=== PATIENT | male | born 1965 | race Caucasian/White ===

== ENCOUNTER → 2016-08-03 | Outpatient (REF) | payer OTHER ==
[2016-08-03 12:30] LABS: MEAN CORPUSCULAR HEMOGLOBIN 29.6 pg (27.0-33.0); MEAN CORPUSCULAR HGB CONC 33.2 g/dl (32.0-36.5); RED CELL DISTRIBUTION WIDTH 13.3 % (11.5-14.5)
[2016-08-03 13:10] LABS: ALBUMIN/GLOBULIN RATIO 1.38 (1.00-1.93); ALKALINE PHOSPHATASE 62 U/L (45-117); ALT/SGPT 33 U/L (12-78); ANION GAP 7 MEQ/L (8-16); AST/SGOT 22 U/L (15-37); BILIRUBIN,TOTAL 0.4 MG/DL (0.2-1.0); BLOOD UREA NITROGEN 17 MG/DL (7-18); CALCIUM LEVEL 8.4 MG/DL (8.5-10.1); CARBON DIOXIDE LEVEL 29 MEQ/L (21-32); CHLORIDE LEVEL 106 MEQ/L (98-107); CHOLESTEROL LEVEL 201 MG/DL (<200); CREATININE FOR GFR 0.97 MG/DL (0.70-1.30); GLOMERULAR FILTRATION RATE > 60.0 (>56); GLUCOSE, FASTING 90 MG/DL (70-105); POTASSIUM SERUM 4.5 MEQ/L (3.5-5.1); SODIUM LEVEL 142 MEQ/L (136-145); TOTAL PROTEIN 6.9 GM/DL (6.4-8.2); TRIGLYCERIDES LEVEL 59 MG/DL (<150)
== END ==
LOC: M SFHCCLAY 09:13
PROVIDERS: ATTEND Nurse Practitioner
DX: I10 Essential (primary) hypertension (principal)

== ENCOUNTER → 2016-09-22 | Outpatient (REF) | payer OTHER | LOC: M SFHCCLAY 15:23 | PROVIDERS: ATTEND Nurse Practitioner | DX: I10 Essential (primary) hypertension (principal) ==

== ENCOUNTER → 2017-07-12 | Outpatient (REF) | payer OTHER ==
[2017-07-13 11:32] LABS: BASO # 0.1 10^3/uL (0.0-0.2); BASO % 0.7 % (0.0-1.0); EOS # 0.1 10^3/uL (0.0-0.50); EOS % 1.9 % (0.0-3.0); HEMATOCRIT 45.8 % (42.0-52.0); HEMOGLOBIN 14.6 g/dl (13.5-17.5); LYMPH # 2.2 10^3/uL (1.5-4.5); LYMPH % 29.9 % (24.0-44.0); MEAN CORPUSCULAR HEMOGLOBIN 27.4 pg (27.0-33.0); MEAN CORPUSCULAR HGB CONC 31.9 g/dl (32.0-36.5); MEAN CORPUSCULAR VOLUME 85.9 fl (80.0-96.0); MONO # 0.6 10^3/uL (0.0-0.8); MONO % 7.9 % (0.0-5.0); NEUTROPHILS # 4.3 10^3/uL (1.8-7.7); NEUTROPHILS % 58.6 % (36.0-66.0); PLATELET COUNT, AUTOMATED 327 10^3/uL (150-450); RED BLOOD COUNT 5.33 10^6/uL (4.30-6.10); WHITE BLOOD COUNT 7.3 10^3/uL (4.0-10.0)
[2017-07-13 11:54] LABS: ALBUMIN 4.1 GM/DL (3.2-5.2); ALBUMIN/GLOBULIN RATIO 1.17 (1.00-1.93); ALKALINE PHOSPHATASE 67 U/L (45-117); ALT/SGPT 24 U/L (12-78); ANION GAP 7 MEQ/L (8-16); AST/SGOT 23 U/L (7-37); BILIRUBIN,TOTAL 0.6 MG/DL (0.2-1.0); BLOOD UREA NITROGEN 15 MG/DL (7-18); CARBON DIOXIDE LEVEL 28 MEQ/L (21-32); CHLORIDE LEVEL 107 MEQ/L (98-107); CHOLESTEROL LEVEL 196 MG/DL (<200); CREATININE FOR GFR 1.05 MG/DL (0.70-1.30); FREE T4 1.04 NG/DL (0.76-1.46); GLOMERULAR FILTRATION RATE > 60.0 (>56); GLUCOSE, FASTING 83 MG/DL (70-100); HDL CHOLESTEROL 49 MG/DL (>40); NON-HDL-C 147 MG/DL; POTASSIUM SERUM 4.2 MEQ/L (3.5-5.1); SODIUM LEVEL 142 MEQ/L (136-145); THYROID STIMULATING HORMONE 0.755 uIU/ML (0.358-3.740); TOTAL PROTEIN 7.6 GM/DL (6.4-8.2); TRIGLYCERIDES LEVEL 110 MG/DL (<150)
== END ==
LOC: M SFHCCLAY 14:13
DX: Z00.00 Encounter for general adult medical examination without abnormal findings (principal); I10 Essential (primary) hypertension
CPT/HCPCS: 84443

== ENCOUNTER 2017-09-27 12:11 | Day surgery (SDC) | payer OTHER ==
[2017-09-27] MEDS: NS 1,000 ML IV (12:39)
== END 2017-09-27 13:45 | disposition home or self-care (01) ==
LOC: M OPP 12:11
DX: Z12.11 Encounter for screening for malignant neoplasm of colon (principal); Z86.010 Personal history of colon polyps; K64.0 First degree hemorrhoids; K57.30 Diverticulosis of large intestine without perforation or abscess without bleeding; I10 Essential (primary) hypertension; Z85.828 Personal history of other malignant neoplasm of skin; F17.220 Nicotine dependence, chewing tobacco, uncomplicated; Z79.899 Other long term (current) drug therapy; Z80.9 Family history of malignant neoplasm, unspecified
CPT/HCPCS: 45378

== ENCOUNTER → 2017-11-18 | Outpatient (REF) | payer OTHER | LOC: M SFHCLERA 10:06 | DX: D23.62 Other benign neoplasm of skin of left upper limb, including shoulder (principal) ==

== ENCOUNTER → 2019-01-03 | Outpatient (REF) | payer OTHER ==
[~2019-01-03] MED LIST: CYCL10TA PO; LISI10TA4 PO; NAPR-885 PO
== END ==
LOC: M SFHCCLAY 15:58
PROVIDERS: ATTEND Nurse Practitioner Family
DX: I10 Essential (primary) hypertension (principal)

== ENCOUNTER → 2019-01-05 | Outpatient (CLI) | payer OTHER ==
[2019-01-05 17:18] LABS: BASO # 0.1 10^3/uL (0.0-0.2); BASO % 0.9 % (0.0-1.0); EOS # 0.3 10^3/uL (0.0-0.5); EOS % 3.8 % (0.0-3.0); HEMATOCRIT 44.9 % (42.0-52.0); HEMOGLOBIN 14.7 g/dl (13.5-17.5); LYMPH # 2.4 10^3/uL (1.5-5.0); LYMPH % 34.8 % (24.0-44.0); MEAN CORPUSCULAR HEMOGLOBIN 28.5 pg (27.0-33.0); MEAN CORPUSCULAR HGB CONC 32.7 g/dl (32.0-36.5); MONO # 0.7 10^3/uL (0.0-0.8); MONO % 9.4 % (0.0-5.0); NEUTROPHILS # 3.5 10^3/uL (1.5-8.5); NEUTROPHILS % 50.7 % (36.0-66.0); PLATELET COUNT, AUTOMATED 286 10^3/uL (150-450); RED BLOOD COUNT 5.16 10^6/uL (4.30-6.10); WHITE BLOOD COUNT 6.9 10^3/uL (4.0-10.0)
[2019-01-05 17:27] LABS: ALBUMIN 4.1 GM/DL (3.2-5.2); ALT/SGPT 31 U/L (12-78); BILIRUBIN,TOTAL 0.8 MG/DL (0.2-1.0); BLOOD UREA NITROGEN 22 MG/DL (7-18); CARBON DIOXIDE LEVEL 32 MEQ/L (21-32); CHLORIDE LEVEL 106 MEQ/L (98-107); CHOLESTEROL LEVEL 212 MG/DL (<200); CHOLESTEROL RISK RATIO 4.711 (<5); CREATININE FOR GFR 1.28 MG/DL (0.70-1.30); FREE T4 0.98 NG/DL (0.76-1.46); GLOMERULAR FILTRATION RATE > 60.0 (>56); GLUCOSE, FASTING 88 MG/DL (70-100); HDL CHOLESTEROL 45 MG/DL (>40); LDL CHOLESTEROL 100 MG/DL (<100); NON-HDL-C 167 MG/DL; POTASSIUM SERUM 4.1 MEQ/L (3.5-5.1); SODIUM LEVEL 142 MEQ/L (136-145); THYROID STIMULATING HORMONE 0.898 uIU/ML (0.358-3.740); TRIGLYCERIDES LEVEL 333 MG/DL (<150)
== END ==
LOC: M WUC 14:49
PROVIDERS: ATTEND Nurse Practitioner Family
DX: I10 Essential (primary) hypertension (principal)

== ENCOUNTER → 2019-02-02 | Outpatient (REF) | payer OTHER ==
[2019-02-06 14:15] LABS: Lyme Disease IgG Ab 18 kDa Ban Present (.); Lyme Disease IgG Ab 23 kDa Ban Absent (.); Lyme Disease IgG Ab 28 kDa Ban Absent (.); Lyme Disease IgG Ab 30 kDa Ban Absent (.); Lyme Disease IgG Ab 39 kDa Ban Present (.); Lyme Disease IgG Ab 41 kDa Ban Present (.); Lyme Disease IgG Ab 45 kDa Ban Absent (.); Lyme Disease IgG Ab 58 kDa Ban Present (.); Lyme Disease IgG Ab 66 kDa Ban Absent (.); Lyme Disease IgG Ab 93 kDa Ban Present (.); Lyme Disease IgG West Blot Int Positive (.); Lyme Disease IgG/IgM Antibodie 2.12 ISR (0.00-0.90); Lyme Disease IgM Ab 23 kDa Ban Present (.); Lyme Disease IgM Ab 39 kDa Ban Absent (.); Lyme Disease IgM Ab 41 kDa Ban Absent (.); Lyme Disease IgM Ab Quantitati <0.80 index (0.00-0.79); Lyme Disease IgM West Blot Int Negative (.)
== END ==
LOC: M SFHCCLAY 13:10
PROVIDERS: ATTEND Nurse Practitioner Family
DX: R25.2 Cramp and spasm (principal); W57.XXXD Bitten or stung by nonvenomous insect and other nonvenomous arthropods, subsequent encounter; Y92.9 Unspecified place or not applicable; Y93.9 Activity, unspecified; Y99.9 Unspecified external cause status

== ENCOUNTER → 2019-02-14 | Outpatient (CLI) | payer OTHER ==
--- NOTE | 2019-02-14 13:22 | REP ---
Urinary tract sonogram: History: Urinary frequency. Comparison: No comparison study. Findings: Scanning at the level of the urinary bladder shows no abnormality. Emptying ureteral jets are confirmed on color Doppler interrogation of the bladder lumen bilaterally. Renal cortical echogenicity pattern is normal bilaterally and contours are smooth. There is no evidence of hydronephrosis, cyst, mass, or calculus in either kidney. Incidental note is made of a 1.6 cm cyst in the right lobe of the liver. The right kidney measures 9.9 x 6.4 x 4.4 cm. Left renal dimensions are 11.6 x 5.7 x 5.5 cm. Impression: 1.6 cm cyst in the liver. Otherwise negative urinary tract sonography. Electronically Signed by Nazario Mendoza MD 02/14/2019 01:13 P
== END ==
LOC: M RAD 12:14
PROVIDERS: ATTEND Nurse Practitioner Family
DX: R35.0 Frequency of micturition (principal)

== ENCOUNTER → 2019-03-06 | Outpatient (CLI) | payer OTHER ==
--- NOTE | 2019-03-06 17:39 | REP ---
LUMBOSACRAL SPINE: Five views of the lumbosacral spine performed. There is no compression fracture. There is relatively normal lumbar lordosis. There is minimal anterolisthesis of L4 on L5 which appears to be due to posterior facet arthropathy with no evidence of spondylolysis. There is mild diffuse spurring. There is mild disc space narrowing at L4-L5 and L5-S1 with sclerosis and spurring at the posterior facet joints of both of these levels. The posterior elements are intact. IMPRESSION: Degenerative changes L4-5 and L5-S1 as discussed above. No fracture or dislocation. Electronically Signed by Jules Mera MD 03/07/2019 09:54 A
== END ==
LOC: M CLY 15:52
PROVIDERS: ATTEND Nurse Practitioner Family
DX: M54.41 Lumbago with sciatica, right side (principal); M51.36 Other intervertebral disc degeneration, lumbar region; M51.37 Other intervertebral disc degeneration, lumbosacral region

== ENCOUNTER → 2019-04-20 | Outpatient (CLI) | payer OTHER ==
--- NOTE | 2019-04-21 08:33 | REP ---
INDICATION: Low back pain PROCEDURE: MRI lumbar spine is routine protocol, and a sagittal T1, T2 and STIR images, axial T1 and T2-weighted images. COMPARISON STUDIES: Plain film study 03/06/2019. FINDINGS: There is zpnj-qq-rxygdzzv multilevel degenerative disc disease loss of disc height and disc desiccation seen diffusely throughout the lumbar spine. Vertebral heights are well preserved. No inna malalignments. Conus ends normally at L1 level. On the sagittal T2-weighted images, the canal narrows at the L3-4 disc level with mild impingement of the nerve roots of the cauda equina On review of axial images, At L1-2 global disc bulge without significant canal or foraminal narrowing. At L2-3 global disc bulge without significant canal or foraminal narrowing. At L3-4 global disc bulge with moderate canal stenosis and ivvl-tp-ijxdnwrx bilateral foraminal narrowing. At L4-5 there is a minimal anterolisthesis of L4 over L5 with global disc bulge with vgtu-px-ofrnzgzu canal narrowing and lbus-hw-wgkomapv bilateral foraminal narrowing appears greater on the left. At L5 S1 loss of disc height, mild canal stenosis, txpb-pf-oxlbehuy right foraminal narrowing and bfrzmcpg-up-qwixns left foraminal narrowing. On the STIR images, no significant STIR signal abnormality to suggest soft tissue or ligamentous injury. IMPRESSION: 1. Asrc-il-trqfdskc multilevel degenerative disc disease. 2. At L3-4 global disc bulge with moderate canal stenosis. 3. L5-S1 loss of disc height with mnzoesjk-co-rfzrtg foraminal narrowing appears greater on the left. Electronically Signed by Joce Santiago MD 04/21/2019 08:25 A
== END ==
LOC: M RAD 16:50
PROVIDERS: ATTEND Physician Assistant
DX: M51.26 Other intervertebral disc displacement, lumbar region (principal); M48.061 Spinal stenosis, lumbar region without neurogenic claudication

== ENCOUNTER → 2019-05-15 | Outpatient (REF) | payer OTHER ==
[2019-05-15 13:30] LABS: INR 1.01; PARTIAL THROMBOPLASTIN TIME 32.2 SECONDS (25.0-38.4)
[2019-05-15 13:45] LABS: PLATELET COUNT, AUTOMATED 265 10^3/uL (150-450)
== END ==
LOC: M LABDRAW1 12:00 → M LABDRAWC 12:00
PROVIDERS: ATTEND Physician Assistant
DX: Z01.812 Encounter for preprocedural laboratory examination (principal); M47.817 Spondylosis without myelopathy or radiculopathy, lumbosacral region

== ENCOUNTER → 2019-05-22 | Outpatient (REF) | payer OTHER | LOC: M LAB REF 09:22 | PROVIDERS: ATTEND Dermatology | DX: D49.2 Neoplasm of unspecified behavior of bone, soft tissue, and skin (principal) ==

== ENCOUNTER 2020-01-15 09:09 | Emergency (ER) | payer OTHER ==
[~2020-01-15] VITALS: Ht 175.3 cm; Wt 93.5 kg
[~2020-01-15 09:09] MED LIST changes: +CYCL-707 PO; -CYCL10TA PO
[2020-01-15] MEDS ORDERED: GABA600T4 (09:18)
[2020-01-15] MEDS ORDERED: DULO1CAP6 (09:18)
[2020-01-15] MEDS ORDERED: MELO15TA28 (09:18)
[2020-01-15] MEDS ORDERED: LOSA25TA14 (09:18)
[2020-01-15 09:57] LABS: BASO % 0.6 % (0.0-1.0); EOS # 0.2 10^3/uL (0.0-0.5); EOS % 3.9 % (0.0-3.0); HEMATOCRIT 41.9 % (42.0-52.0); HEMOGLOBIN 13.2 g/dl (13.5-17.5); LYMPH # 1.7 10^3/uL (1.5-5.0); MEAN CORPUSCULAR HEMOGLOBIN 27.3 pg (27.0-33.0); MEAN CORPUSCULAR HGB CONC 31.5 g/dl (32.0-36.5); MEAN CORPUSCULAR VOLUME 86.6 fl (80.0-96.0); MONO # 0.4 10^3/uL (0.0-0.8); MONO % 8.6 % (0.0-5.0); NEUTROPHILS # 2.5 10^3/uL (1.5-8.5); NEUTROPHILS % 51.7 % (36.0-66.0); PLATELET COUNT, AUTOMATED 233 10^3/uL (150-450); RED BLOOD COUNT 4.84 10^6/uL (4.30-6.10); WHITE BLOOD COUNT 4.9 10^3/uL (4.0-10.0)
--- NOTE | 2020-01-15 10:06 | REPVR ---
PROCEDURE INFORMATION: Exam: XR Chest, 2 Views Exam date and time: 01/15/2020 9:31 AM Age: 54 years old Clinical indication: Shortness of breath; Additional info: HTN TECHNIQUE: Imaging protocol: XR of the chest Views: 2 views. COMPARISON: No relevant prior studies available. FINDINGS: Lungs: Unremarkable. No consolidation. Pleural space: Unremarkable. No pleural effusion. No pneumothorax. Heart/Mediastinum: Unremarkable. No cardiomegaly. Bones/joints: Unremarkable. IMPRESSION: No acute findings. Electronically signed by: Zuly Brady On 01/15/2020 10:06:15 AM
--- NOTE | 2020-01-15 10:06 | REPVR ---
PROCEDURE INFORMATION: Exam: CT Head Without Contrast Exam date and time: 01/15/2020 9:32 AM Age: 54 years old Clinical indication: Pain; Other: High blood pressure; Headache; Additional info: CASSIDY and elev BP TECHNIQUE: Imaging protocol: Computed tomography of the head without contrast. Radiation optimization: All CT scans at this facility use at least one of these dose optimization techniques: automated exposure control; mA and/or kV adjustment per patient size (includes targeted exams where dose is matched to clinical indication); or iterative reconstruction. COMPARISON: No relevant prior studies available. FINDINGS: Brain: Normal. No hemorrhage. Unremarkable white matter. No mass effect. Cerebral ventricles: No ventriculomegaly. Bones/joints: Unremarkable. No acute fracture. Paranasal sinuses: Visualized sinuses are unremarkable. No fluid levels. Mastoid air cells: Visualized mastoid air cells are well aerated. Soft tissues: Unremarkable. IMPRESSION: No acute intracranial abnormality. Electronically signed by: Zuly Brady On 01/15/2020 10:05:55 AM
[2020-01-15 10:33] LABS: ALBUMIN 3.8 GM/DL (3.2-5.2); BILIRUBIN,DIRECT 0.1 MG/DL (0.0-0.2); BILIRUBIN,TOTAL 0.6 MG/DL (0.2-1.0); TOTAL PROTEIN 7.1 GM/DL (6.4-8.2)
[2020-01-15 12:08] LABS: APPEARANCE, URINE CLEAR (CLEAR); BACTERIA, URINE AUTO NEGATIVE (NEGATIVE); BILIRUBIN, URINE AUTO NEGATIVE (NEGATIVE); BLOOD, URINE BLOOD NEGATIVE (NEGATIVE); COLOR, URINE YELLOW (YELLOW); GLUCOSE, URINE (UA) AUTO NEGATIVE (NEGATIVE); KETONE, URINE AUTO NEGATIVE (NEGATIVE); LEUKOCYTE ESTERASE, URINE AUTO NEGATIVE (NEGATIVE); NITRITE, URINE AUTO NEGATIVE (NEGATIVE); PROTEIN, URINE AUTO NEGATIVE (NEGATIVE); RBC, URINE AUTO 1 /HPF (0-3); SPECIFIC GRAVITY URINE AUTO 1.009 (1.002-1.035); SQUAMOUS EPITHELIAL CELL UR AU 0 /HPF (0-6); UROBILINOGEN, URINE AUTO 0.2 mg/dL (0.0-2.0); WBC, URINE AUTO 1 /HPF (0-3)
[2020-01-15 12:45] VITALS: BP 165/99
--- NOTE | 2020-01-15 19:43 | ECGEPIP ---
[facility] - ED Test Date: 2020-01-15 Pat Name: VENKATA ESPINAL Department: Room: - Gender: Male [employer]: susanne : 1965 Requested By: Bryant Mathew Order Number: [id number] Reading MD: Bryant Mathew Measurements Intervals [place] Rate: 69 P: 63 FL: 168 QRS: 9 QRSD: 100 T: 32 QT: 370 QTc: 397 Interpretive Statements SINUS RHYTHM NONSPECIFIC ST T WAVE CHANGES NO PRIOR ECG FOR COMPARISON Electronically Signed on 01-15-2020 19:43:05 EDT by Bryant Mathew
--- NOTE | 2020-01-15 19:46 | ECGEPIP ---
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 Order Number: [id number] Reading MD: Bryant Mathew Measurements Intervals [place] Rate: 55 P: 40 SC: 151 QRS: 15 QRSD: 102 T: 36 QT: 399 QTc: 382 Interpretive Statements SINUS BRADYCARDIA NONSPECIFIC ST T WAVE CHANGES CW 01/15/[address] T WAVE CHANGES Electronically Signed on 01-15-2020 19:46:28 EDT by Bryant Mathew
== END 2020-01-15 13:10 | disposition home or self-care (01) ==
LOC: M ED 09:09
DX: I10 Essential (primary) hypertension (principal); M62.81 Muscle weakness (generalized); R00.1 Bradycardia, unspecified; M54.9 Dorsalgia, unspecified; Z87.891 Personal history of nicotine dependence; Z79.899 Other long term (current) drug therapy

== ENCOUNTER → 2020-01-18 | Outpatient (REF) | payer OTHER ==
[~2020-01-18] MED LIST changes: +DULO1CAP6; +GABA600T4; +LOSA25TA14; +MELO15TA28
[2020-01-18 16:44] LABS: ALBUMIN 3.8 GM/DL (3.2-5.2); ALT/SGPT 25 U/L (12-78); BILIRUBIN,TOTAL 0.9 MG/DL (0.2-1.0); BLOOD UREA NITROGEN 21 MG/DL (7-18); CALCIUM LEVEL 9.1 MG/DL (8.5-10.1); CARBON DIOXIDE LEVEL 29 MEQ/L (21-32); CHLORIDE LEVEL 107 MEQ/L (98-107); CHOLESTEROL LEVEL 211 MG/DL (<200); CHOLESTEROL RISK RATIO 4.306 (<5); CREATININE FOR GFR 1.06 MG/DL (0.70-1.30); FREE T4 0.87 NG/DL (0.76-1.46); GLOMERULAR FILTRATION RATE > 60.0 (>56); GLUCOSE, FASTING 116 MG/DL (70-100); HDL CHOLESTEROL 49 MG/DL (>40); LDL CHOLESTEROL 136 MG/DL (<100); NON-HDL-C 162 MG/DL; POTASSIUM SERUM 4.2 MEQ/L (3.5-5.1); SODIUM LEVEL 140 MEQ/L (136-145); THYROID STIMULATING HORMONE 0.634 uIU/ML (0.358-3.740); TOTAL PROTEIN 7.1 GM/DL (6.4-8.2); TRIGLYCERIDES LEVEL 129 MG/DL (<150)
== END ==
LOC: M SFHCCLAY 10:43
PROVIDERS: ATTEND Nurse Practitioner Family
DX: I10 Essential (primary) hypertension (principal)

== ENCOUNTER → 2020-02-26 | Outpatient (CLI) | payer OTHER ==
[2020-02-26 20:41] LABS: PLATELET COUNT, AUTOMATED 293 10^3/uL (150-450)
[2020-02-26 20:52] LABS: INR 0.95; PROTHROMBIN TIME 12.9 SECONDS (12.5-14.3)
[2020-02-26 20:53] LABS: PARTIAL THROMBOPLASTIN TIME 32.1 SECONDS (24.2-38.5)
== END ==
LOC: M WUC 16:51
PROVIDERS: ATTEND Physician Assistant
DX: M47.817 Spondylosis without myelopathy or radiculopathy, lumbosacral region (principal)

== ENCOUNTER → 2020-04-03 | Outpatient (CLI) | payer OTHER | LOC: M LABSMTC 12:17 | PROVIDERS: ATTEND Physical Medicine & Rehabilitation | DX: Z01.812 Encounter for preprocedural laboratory examination (principal); Z20.828 Contact with and (suspected) exposure to other viral communicable diseases ==

== ENCOUNTER → 2020-06-12 | Outpatient (REF) | payer OTHER ==
[~2020-06-12] MED LIST changes: +LISI10TA22 PO; -LISI10TA4 PO
[2020-06-13 11:51] LABS: BASO % 0.7 % (0.0-1.0); EOS # 0.2 10^3/uL (0.0-0.5); EOS % 3.5 % (0.0-3.0); HEMATOCRIT 45.6 % (42.0-52.0); HEMOGLOBIN 14.3 g/dl (13.5-17.5); LYMPH # 1.6 10^3/uL (1.5-5.0); LYMPH % 28.9 % (24.0-44.0); MEAN CORPUSCULAR HEMOGLOBIN 27.3 pg (27.0-33.0); MEAN CORPUSCULAR HGB CONC 31.4 g/dl (32.0-36.5); MEAN CORPUSCULAR VOLUME 87.2 fl (80.0-96.0); MONO # 0.5 10^3/uL (0.0-0.8); MONO % 9.1 % (2.0-8.0); NEUTROPHILS # 3.1 10^3/uL (1.5-8.5); NEUTROPHILS % 57.2 % (36.0-66.0); PLATELET COUNT, AUTOMATED 308 10^3/uL (150-450); RED BLOOD COUNT 5.23 10^6/uL (4.30-6.10); WHITE BLOOD COUNT 5.4 10^3/uL (4.0-10.0)
[2020-06-13 13:43] LABS: ALBUMIN 4.1 GM/DL (3.2-5.2); ALT/SGPT 34 U/L (12-78); BILIRUBIN,TOTAL 0.6 MG/DL (0.2-1.0); BLOOD UREA NITROGEN 19 MG/DL (7-18); CALCIUM LEVEL 8.7 MG/DL (8.5-10.1); CARBON DIOXIDE LEVEL 29 MEQ/L (21-32); CHLORIDE LEVEL 108 MEQ/L (98-107); CREATININE FOR GFR 1.13 MG/DL (0.70-1.30); FREE T4 0.83 NG/DL (0.76-1.46); GLOMERULAR FILTRATION RATE > 60.0 (>56); GLUCOSE, FASTING 101 MG/DL (70-100); POTASSIUM SERUM 5.6 MEQ/L (3.5-5.1); SODIUM LEVEL 140 MEQ/L (136-145); THYROID STIMULATING HORMONE 0.955 uIU/ML (0.358-3.740); TOTAL PROTEIN 7.4 GM/DL (6.4-8.2)
== END ==
LOC: M SFHCCLAY 13:45
PROVIDERS: ATTEND Nurse Practitioner Family
DX: I10 Essential (primary) hypertension (principal); R42 Dizziness and giddiness

== ENCOUNTER → 2020-06-19 | Outpatient (CLI) | payer OTHER ==
--- NOTE | 2020-06-19 10:26 | REP ---
INDICATION: DIZZINESS COMPARISON: None. TECHNIQUE: Real-time ultrasound evaluation and duplex Doppler interrogation of the extracranial carotid vasculature is performed. FINDINGS: There is minimal plaquing and narrowing in both carotid bulbs, internal and external carotid arteries. Luminal narrowing is less than 50%. There is no evidence of hemodynamically significant stenosis of either internal carotid artery. Normal flow velocities are seen. The vertebral arteries demonstrate normal direction of flow. RIGHT LEFT Peak systolic velocity ICA 54.5 cm/s 59.5 cm/s End diastolic velocity ICA 19.1 cm/s 29.5 cm/s Peak systolic velocity CCA 67.0 cm/s 81.9cm/s Peak systolic velocity ECA 107.4 cm/s 101.2 cm/s ICA/CCA ratio 0.8 0.7 IMPRESSION: Bilateral luminal narrowing of the internal carotid arteries less than 50%. No evidence of hemodynamically significant stenosis. <Electronically signed by Jules Mera > 06/19/20 [id number]
== END ==
LOC: M RAD 09:53
PROVIDERS: ATTEND Nurse Practitioner Family
DX: I65.29 Occlusion and stenosis of unspecified carotid artery (principal); R42 Dizziness and giddiness

== ENCOUNTER → 2020-06-20 | Outpatient (CLI) | payer OTHER ==
--- NOTE | 2020-06-21 12:41 | ECHO ---
DATE OF PROCEDURE: 06/20/2020 Age: 55 Gender: Male Height: 69 inches Weight: 209 pounds Body surface area: 2.1 m2 PATIENT LOCATION: Outpatient. REFERRING PHYSICIAN: NOEMI Hilliard. INDICATION: Hypertension. MEASUREMENTS: 2D Measurements: RV 4.0 cm LV 4.6 cm Septum 1.2 cm Posterior wall 1.2 cm Aortic Root 3.6 cm LA 4.3 cm LVEF 75% Doppler Measurements: AV 1.64 m/s LVOT 1.19 m/s MV-E 65, A 47, E/A ratio 1.4 Early mitral deceleration time 166 msec E prime medial 10, A prime medial 9.7, E prime lateral 9.7 PV 1.0 m/s Pulmonary artery acceleration time 116 msec RVSP 30 mmHg IVC 1.3 cm COMMENTS: Normal sinus rhythm without intraventricular conduction disturbance. Technically challenging study in light of the patients body habitus, but diagnostically useful information was still obtained. M-mode and two-dimensional echocardiography was performed with pulse, continuous wave, color flow, and tissue Doppler studies. Borderline concentric left ventricular hypertrophy with hyperkinetic wall motion. Mildly dilated left atrium, but currently normal Doppler assessment of LV diastolic function and estimated mean left atrial pressure. Normal right heart chamber sizes and motion with Doppler evidence of pulmonary arterial pressure upper limits of normal to borderline increased. Normal IVC size and collapse against an elevated central venous pressure. Normal aortic dimensions. Somewhat challenging, but aortic valve appearance suspect for bicuspid structure without current aortic stenosis or insufficiency. Normal appearing mitral valve apparatus and leaflet excursion with no posterior systolic buckling. Trace insufficiency (physiologic). Normal appearing tricuspid valve with very mild insufficiency. No apparent intracardiac mass or pericardial effusion. In light of the aortic valve findings, a follow-up study would be suggested in two to three years time. BREONNA
== END ==
LOC: M CARPUL 09:14
PROVIDERS: ATTEND Nurse Practitioner Family
DX: I10 Essential (primary) hypertension (principal)

== ENCOUNTER → 2020-07-04 | Outpatient (CLI) | payer OTHER ==
--- NOTE | 2020-07-04 18:34 | REPVR ---
PROCEDURE INFORMATION: Exam: MR Cervical Spine Without Contrast Exam date and time: 07/04/2020 5:27 PM Age: 55 years old Clinical indication: Pain; Cervicalgia; Additional info: Cervacalgia TECHNIQUE: Imaging protocol: Multiplanar magnetic resonance images of the cervical spine without contrast. COMPARISON: CR SPINE LS COMPLETE 03/06/2019 4:01 PM FINDINGS: Nonspecific straightening. Vertebral body height and AP alignment is preserved. Multilevel disc desiccation. No evidence of discitis/osteomyelitis. No abnormal cord signal or cord expansion. No epidural fluid collection. 2.2 cm right thyroid nodule 1.5 cm left thyroid nodule. C2-C3: No significant central or foraminal stenosis. C3-C4: No significant central canal stenosis. Bilateral uncinate spurring contributes to severe right and moderate to severe left foraminal stenosis. C4-C5: Uncinate spurring contributes to jjzt-lv-yeecndjd right and mild left foraminal stenosis. No significant central canal stenosis. C5-C6: Uncinate spurring contributes to mild right and ruyi-uc-hmcwndxs left foraminal stenosis. No significant central canal stenosis. C6-C7: Minimal disc osteophyte complex with bilateral uncinate spurring. No significant central canal stenosis. There is mild right and tyoo-qd-vejwaosg left foraminal stenosis. C7-T1: No significant central or foraminal stenosis. IMPRESSION: 1. No acute abnormality. 2. Degenerative findings as above without significant central canal compromise. 3. 2.2 cm right thyroid nodule and 1.5 cm left thyroid nodule. Ultrasound may be considered. Electronically signed by: Benjamin Molina On 07/04/2020 18:33:58 PM
--- NOTE | 2020-07-04 18:36 | REPVR ---
PROCEDURE INFORMATION: Exam: MR Thoracic Spine Without Contrast Exam date and time: 07/04/2020 5:27 PM Age: 55 years old Clinical indication: Pain in thoracic spine; Without myelpathy or radiculopathy; Additional info: Cervacalgia TECHNIQUE: Imaging protocol: Multiplanar magnetic resonance images of the thoracic spine without contrast. COMPARISON: CR SPINE LS COMPLETE 03/06/2019 4:01 PM FINDINGS: Vertebral body height and AP alignment is preserved. Multilevel disc desiccation. No evidence of discitis/osteomyelitis. There is multilevel Schmorl's node formation. There is increased cord signal and cord thinning at T3-T4. No expansile cord lesion. No epidural fluid collection. There are a few tiny thoracic protrusions without significant central canal stenosis throughout. IMPRESSION: 1. 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 2. Thoracic spine degenerative disc disease without significant central canal compromise throughout. Electronically signed by: Benjamin Molina On 07/04/2020 18:36:39 PM
== END ==
LOC: M RAD 15:50
PROVIDERS: ATTEND Physician Assistant
DX: M54.2 Cervicalgia (principal)

== ENCOUNTER → 2020-07-18 | Outpatient (CLI) | payer OTHER ==
--- NOTE | 2020-07-18 15:20 | REP ---
INDICATION: SPONDYLOSIS W/O MYELOPATHY. COMPARISON: MR lumbar spine 04/20/2019 TECHNIQUE: Sagittal T1, T2, stir images obtained. Axial T2-1 and T2 weighted images obtained. FINDINGS: There is fasr-lr-mfaedctg multilevel degenerative disc disease with loss of disc height and disc desiccation seen diffusely throughout the lumbar spine. Vertebral heights are overall preserved. No malalignments. On the sagittal T2 weighted images, the spinal canal appears congenitally narrow however no evidence of further canal compromise. No evidence of cord impingement or cord compression. The narrowest level appears to be at L3-4. On the STIR images, no significant stir signal abnormality to suggest soft tissue or ligamentous injury. There appears to be transitional anatomy with a complete vertebrae at S1. Comparison plain film studies recommended prior to any interventions. On the review of axial images, At L1-2 disc bulge without significant canal or foraminal narrowing. At L2-3 disc bulge without significant canal or foraminal narrowing. At L3-4 global disc bulge with ligamentum flavum infolding and facet hypertrophy with a moderate canal stenosis and moderate bilateral foraminal narrowing. At L4-5 disc bulge with telj-zr-glbfnabh canal narrowing and ipve-ql-csuukrgs bilateral foraminal narrowing. At L5-S1 slight listhesis with at least moderate left foraminal narrowing jbul-bq-typgtyfr right foraminal narrowing and mild canal stenosis. IMPRESSION: 1. Wohq-qs-gdccycxj multilevel degenerative disc disease with congenital spinal canal narrowing. 2. At L3-4 global disc bulge with moderate canal stenosis. 3. At L5-S1 zfghptrs-pu-cmtbla foraminal narrowing appears greater on the left. 4. When compared to the prior study of 04/20/2019, no significant changes. <Electronically signed by Joce Santiago > 07/18/20 [id number]
== END ==
LOC: M PLARAD 13:26
PROVIDERS: ATTEND Physician Assistant
DX: M47.817 Spondylosis without myelopathy or radiculopathy, lumbosacral region (principal); M51.26 Other intervertebral disc displacement, lumbar region

== ENCOUNTER → 2020-08-12 | Outpatient (REF) | payer OTHER ==
[2020-08-12 14:49] LABS: ALBUMIN 4.1 GM/DL (3.2-5.2); ALT/SGPT 35 U/L (12-78); BILIRUBIN,TOTAL 0.8 MG/DL (0.2-1.0); BLOOD UREA NITROGEN 17 MG/DL (7-18); CALCIUM LEVEL 8.9 MG/DL (8.5-10.1); CARBON DIOXIDE LEVEL 30 MEQ/L (21-32); CHLORIDE LEVEL 108 MEQ/L (98-107); CHOLESTEROL LEVEL 123 MG/DL (<200); CHOLESTEROL RISK RATIO 2.617 (<5); CREATININE FOR GFR 1.03 MG/DL (0.70-1.30); GLOMERULAR FILTRATION RATE > 60.0 (>56); GLUCOSE, FASTING 92 MG/DL (70-100); HDL CHOLESTEROL 47 MG/DL (>40); LDL CHOLESTEROL 63 MG/DL (<100); NON-HDL-C 76 MG/DL; POTASSIUM SERUM 4.8 MEQ/L (3.5-5.1); SODIUM LEVEL 141 MEQ/L (136-145); TOTAL PROTEIN 7.3 GM/DL (6.4-8.2); TRIGLYCERIDES LEVEL 66 MG/DL (<150)
== END ==
LOC: M SFHCCLAY 08:02
PROVIDERS: ATTEND Nurse Practitioner Family
DX: I10 Essential (primary) hypertension (principal); E78.5 Hyperlipidemia, unspecified

== ENCOUNTER → 2021-07-16 | Outpatient (REF) ==
[~2021-07-16] MED LIST changes: +LOSA25TA13; -LOSA25TA14
== END ==
LOC: M PLAIMG 15:34
PROVIDERS: ATTEND Internal Medicine
DX: M54.9 Dorsalgia, unspecified (principal)

== ENCOUNTER → 2021-08-19 | Outpatient (REF) | payer OTHER ==
[2021-08-19 11:36] LABS: HEMATOCRIT 44.8 % (42.0-52.0); MEAN CORPUSCULAR HEMOGLOBIN 27.3 pg (27.0-33.0); MEAN CORPUSCULAR HGB CONC 31.3 g/dl (32.0-36.5); MEAN CORPUSCULAR VOLUME 87.5 fl (80.0-96.0); PLATELET COUNT, AUTOMATED 259 10^3/uL (150-450); RED BLOOD COUNT 5.12 10^6/uL (4.30-6.10); WHITE BLOOD COUNT 4.7 10^3/uL (4.0-10.0)
[2021-08-19 12:20] LABS: ALBUMIN 3.9 GM/DL (3.2-5.2); ALT/SGPT 39 U/L (12-78); BILIRUBIN,TOTAL 0.6 MG/DL (0.2-1.0); BLOOD UREA NITROGEN 17 MG/DL (7-18); CALCIUM LEVEL 8.9 MG/DL (8.5-10.1); CARBON DIOXIDE LEVEL 28 MEQ/L (21-32); CHLORIDE LEVEL 110 MEQ/L (98-107); CHOLESTEROL LEVEL 100 MG/DL (<200); CHOLESTEROL RISK RATIO 2.702 (<5); CREATININE FOR GFR 1.13 MG/DL (0.70-1.30); FREE T4 0.91 NG/DL (0.76-1.46); GLOMERULAR FILTRATION RATE > 60.0 (>56); GLUCOSE, FASTING 95 MG/DL (70-100); HDL CHOLESTEROL 37 MG/DL (>40); LDL CHOLESTEROL 50 MG/DL (<100); MAGNESIUM LEVEL 2.3 MG/DL (1.8-2.4); NON-HDL-C 63 MG/DL; POTASSIUM SERUM 4.6 MEQ/L (3.5-5.1); SODIUM LEVEL 141 MEQ/L (136-145); TOTAL PROTEIN 7.1 GM/DL (6.4-8.2); TRIGLYCERIDES LEVEL 66 MG/DL (<150); VITAMIN B12 LEVEL 345 PG/ML (247-911)
== END ==
LOC: M SFHCCLAY 08:15
PROVIDERS: ATTEND Nurse Practitioner Family
DX: I10 Essential (primary) hypertension (principal); R42 Dizziness and giddiness; E78.5 Hyperlipidemia, unspecified; R25.2 Cramp and spasm

== ENCOUNTER → 2021-09-04 | Outpatient (CLI) | payer OTHER | LOC: M PLAIMG 08:08 | PROVIDERS: ATTEND Psychiatry & Neurology Neurology | DX: R42 Dizziness and giddiness (principal) ==

== ENCOUNTER → 2021-10-22 | Outpatient (CLI) | payer OTHER ==
[2021-10-22 10:22] LABS: PLATELET COUNT, AUTOMATED 261 10^3/uL (150-450)
[2021-10-22 10:30] LABS: INR 0.95; PROTHROMBIN TIME 13.1 SECONDS (12.7-14.5)
[2021-10-22 10:31] LABS: PARTIAL THROMBOPLASTIN TIME 30.9 SECONDS (25.9-37.0)
== END ==
LOC: M LAB 08:44
PROVIDERS: ATTEND Physician Assistant
DX: M51.36 Other intervertebral disc degeneration, lumbar region (principal)

== ENCOUNTER → 2021-12-12 | Outpatient (REF) | payer OTHER | LOC: M LABDRAWC 11:42 | PROVIDERS: ATTEND Psychiatry & Neurology Neurology | DX: E53.8 Deficiency of other specified B group vitamins (principal) ==

== ENCOUNTER → 2021-12-16 | Outpatient (REF) | payer OTHER | LOC: M LAB REF 15:12 | PROVIDERS: ATTEND Physician Assistant | DX: M48.062 Spinal stenosis, lumbar region with neurogenic claudication (principal) ==

== ENCOUNTER → 2021-12-25 | Outpatient (REF) | payer OTHER | LOC: M SFHCCLAY 15:11 | PROVIDERS: ATTEND Family Medicine | DX: H66.91 Otitis media, unspecified, right ear (principal) ==

== ENCOUNTER → 2022-04-29 | Outpatient (REF) | payer OTHER | LOC: M LABDRAWC 17:08 | PROVIDERS: ATTEND Psychiatry & Neurology Neurology | DX: E53.8 Deficiency of other specified B group vitamins (principal) ==

== ENCOUNTER → 2022-07-03 | Outpatient (CLI) | payer OTHER ==
[~2022-07-03] MED LIST changes: +PROHANCE 279.3MG/ML 15ML VIAL As Ordered ONE; +PROHANCE 279.3MG/ML 5ML VIAL As Ordered ONE
== END ==
LOC: M RAD 08:53
PROVIDERS: ATTEND Psychiatry & Neurology Neurology
DX: M47.14 Other spondylosis with myelopathy, thoracic region (principal); E04.1 Nontoxic single thyroid nodule; G95.89 Other specified diseases of spinal cord
CPT/HCPCS: 72157; A9576

== ENCOUNTER → 2022-08-25 | Outpatient (REF) | payer OTHER ==
[~2022-08-25] MED LIST changes: -PROHANCE 279.3MG/ML 15ML VIAL As Ordered ONE; -PROHANCE 279.3MG/ML 5ML VIAL As Ordered ONE
[2022-08-25 12:11] LABS: BASO # 0.1 10^3/uL (0.0-0.2); BASO % 1.1 % (0.0-1.0); EOS # 0.2 10^3/uL (0.0-0.5); EOS % 4.7 % (0.0-3.0); HEMATOCRIT 44.1 % (42.0-52.0); HEMOGLOBIN 14.2 g/dl (13.5-17.5); LYMPH # 1.6 10^3/uL (1.5-5.0); LYMPH % 34.8 % (24.0-44.0); MEAN CORPUSCULAR HEMOGLOBIN 27.9 pg (27.0-33.0); MEAN CORPUSCULAR HGB CONC 32.2 g/dl (32.0-36.5); MEAN CORPUSCULAR VOLUME 86.6 fl (80.0-96.0); MONO # 0.4 10^3/uL (0.0-0.8); MONO % 8.5 % (2.0-8.0); NEUTROPHILS # 2.4 10^3/uL (1.5-8.5); NEUTROPHILS % 50.5 % (36.0-66.0); PLATELET COUNT, AUTOMATED 284 10^3/uL (150-450); RED BLOOD COUNT 5.09 10^6/uL (4.30-6.10); WHITE BLOOD COUNT 4.7 10^3/uL (4.0-10.0)
[2022-08-25 12:33] LABS: ALBUMIN 3.7 G/DL (3.2-5.2); ALKALINE PHOSPHATASE 69 U/L (46-116); ALT/SGPT 27 U/L (7.0-40); AST/SGOT 29 U/L (<34); BILIRUBIN,TOTAL 0.9 MG/DL (0.3-1.2); BLOOD UREA NITROGEN 12 MG/DL (9-23); CALCIUM LEVEL 8.5 MG/DL (8.5-10.1); CARBON DIOXIDE LEVEL 29 MMOL/L (20-31); CHLORIDE LEVEL 107 MMOL/L (98-107); CHOLESTEROL LEVEL 99 MG/DL (<200); CHOLESTEROL RISK RATIO 2.77 (<5); CREATININE FOR GFR 0.98 MG/DL (0.70-1.30); FREE T4 0.89 NG/DL (0.89-1.76); GLOMERULAR FILTRATION RATE > 60.0 (>56); GLUCOSE, FASTING 89 MG/DL (60-100); HDL CHOLESTEROL 35.7 MG/DL (>40); LDL CHOLESTEROL 49.3 MG/DL (<100); MAGNESIUM LEVEL 2.1 MG/DL (1.8-2.4); NON-HDL-C 63.3 MG/DL; POTASSIUM SERUM 4.4 MMOL/L (3.5-5.1); SODIUM LEVEL 142 MMOL/L (136-145); TOTAL PROTEIN 6.4 G/DL (5.7-8.2); TRIGLYCERIDES LEVEL 70 MG/DL (<150)
[2022-08-25 12:34] LABS: THYROID STIMULATING HORMONE 1.336 uIU/ML (0.55-4.78)
== END ==
LOC: M SFHCCLAY 09:11
PROVIDERS: ATTEND Nurse Practitioner Family
DX: I10 Essential (primary) hypertension (principal); R42 Dizziness and giddiness; E78.5 Hyperlipidemia, unspecified; R25.2 Cramp and spasm; W57.XXXD Bitten or stung by nonvenomous insect and other nonvenomous arthropods, subsequent encounter

== ENCOUNTER → 2022-09-25 | Outpatient (CLI) | payer OTHER | LOC: M CARPUL 08:35 | PROVIDERS: ATTEND Nurse Practitioner Family | DX: I10 Essential (primary) hypertension (principal); I08.3 Combined rheumatic disorders of mitral, aortic and tricuspid valves; R55 Syncope and collapse ==

== ENCOUNTER → 2022-10-26 | Outpatient (CLI) | payer OTHER | LOC: M RAD 10:18 | PROVIDERS: ATTEND Nurse Practitioner Family | DX: E04.2 Nontoxic multinodular goiter (principal) ==

== ENCOUNTER 2023-01-25 09:19 | Emergency (ER) | payer MEDICARE, OTHER ==
[~2023-01-25] VITALS: Ht 177.8 cm; Wt 81.8 kg
[2023-01-25] MEDS ORDERED: LOSA100T46 (09:36)
[2023-01-25] MEDS ORDERED: TIZA10TA (09:36)
[2023-01-25] MEDS ORDERED: ATOR40TA75 (09:36)
[2023-01-25] MEDS ORDERED: MORPHINE 4 MG/ML 1ML VIAL IV ONE (11:25)
[2023-01-25 12:02] LABS: BASO # 0.1 10^3/uL (0.0-0.2); BASO % 0.6 % (0.0-1.0); EOS # 0.1 10^3/uL (0.0-0.5); EOS % 0.7 % (0.0-3.0); HEMATOCRIT 46.3 % (42.0-52.0); LYMPH # 2.1 10^3/uL (1.5-5.0); LYMPH % 24.3 % (24.0-44.0); MEAN CORPUSCULAR HEMOGLOBIN 28.4 pg (27.0-33.0); MEAN CORPUSCULAR HGB CONC 32.4 g/dl (32.0-36.5); MEAN CORPUSCULAR VOLUME 87.7 fl (80.0-96.0); MONO # 0.7 10^3/uL (0.0-0.8); MONO % 8.4 % (2.0-8.0); NEUTROPHILS # 5.6 10^3/uL (1.5-8.5); NEUTROPHILS % 65.9 % (36.0-66.0); PLATELET COUNT, AUTOMATED 288 10^3/uL (150-450); RED BLOOD COUNT 5.28 10^6/uL (4.30-6.10); WHITE BLOOD COUNT 8.5 10^3/uL (4.0-10.0)
[2023-01-25 12:14] LABS: LIPASE 60 U/L (12-53)
[2023-01-25 12:15] LABS: INR 1.02; PROTHROMBIN TIME 13.1 SECONDS (12.5-14.5)
[2023-01-25 12:17] LABS: ALBUMIN 4.5 G/DL (3.2-5.2); ALKALINE PHOSPHATASE 70 U/L (46-116); ALT/SGPT 18 U/L (7.0-40); AST/SGOT 31 U/L (<34); BILIRUBIN,DIRECT 0.5 MG/DL (<0.4); BILIRUBIN,TOTAL 1.4 MG/DL (0.3-1.2); BLOOD UREA NITROGEN 15 MG/DL (9-23); CALCIUM LEVEL 9.4 MG/DL (8.5-10.1); CARBON DIOXIDE LEVEL 29 MMOL/L (20-31); CHLORIDE LEVEL 102 MMOL/L (98-107); CK-MB VALUE MASS 4.2 NG/ML (<3.6); CREATININE FOR GFR 0.94 MG/DL (0.70-1.30); GLOMERULAR FILTRATION RATE > 60.0 (>56); GLUCOSE, FASTING 111 MG/DL (60-100); POTASSIUM SERUM 4.3 MMOL/L (3.5-5.1); SODIUM LEVEL 139 MMOL/L (136-145); TOTAL PROTEIN 7.6 G/DL (5.7-8.2)
[2023-01-25 12:20] LABS: CPK CREATINE PHOSPHOKINASE 582 U/L (46-171); MB/CK RELATIVE INDEX 0.72 (< OR =4)
[2023-01-25] MEDS ORDERED: KETOROLAC 30 MG/ML 1ML VIAL IV ONE (13:05)
[2023-01-25 13:44] LABS: MB/CK RELATIVE INDEX 0.77 (< OR =4)
[2023-01-25] MEDS ORDERED: CHLORTHALIDONE 12.5MG PER 1/2 TABLET PO ONE (14:20)
[2023-01-25] MEDS ORDERED: CHLO125TA PO (14:26)
[2023-01-25] MEDS ORDERED: FLOM0.4C39 PO (14:26)
[2023-01-25] MEDS ORDERED: NAPR-837 PO (14:26)
[2023-01-25 14:50] VITALS: BP 172/94; TEMP 98.4; O2SAT 98
== END 2023-01-25 15:06 | disposition home or self-care (01) ==
LOC: M ED 09:19
DX: R07.9 Chest pain, unspecified (principal); M62.830 Muscle spasm of back; R31.9 Hematuria, unspecified; N40.0 Benign prostatic hyperplasia without lower urinary tract symptoms; I10 Essential (primary) hypertension; E27.9 Disorder of adrenal gland, unspecified; N32.89 Other specified disorders of bladder; M54.50 Low back pain, unspecified; Z79.02 Long term (current) use of antithrombotics/antiplatelets; Z79.811 Long term (current) use of aromatase inhibitors; Z79.899 Other long term (current) drug therapy; Z87.891 Personal history of nicotine dependence
CPT/HCPCS: 71045; 74176; 80048; 80076; 81001; 82550; 82553; 83690; 84484; 85025; 85610; 93005; 93041; 94760; 96374; 96375; 99285; J1885

== ENCOUNTER 2023-01-31 08:34 | Emergency (ER) | payer MEDICARE ==
[~2023-01-31] VITALS: Ht 177.8 cm; Wt 81.8 kg
[~2023-01-31 08:34] MED LIST changes: +ATOR40TA75; +CHLO125TA PO; +FLOM0.4C39 PO; +LOSA100T46; +NAPR-837 PO; +TIZA10TA
[2023-01-31] MEDS ORDERED: CYAN-1 (08:49)
[2023-01-31] MEDS ORDERED: GABA800T4 (08:49)
[2023-01-31] MEDS ORDERED: ONDANSETRON 4MG 2ML VIAL IV ONE (09:20)
[2023-01-31] MEDS ORDERED: MORPHINE 4 MG/ML 1ML VIAL IV ONE ×3 (09:20→20:30)
[2023-01-31 09:33] LABS: BASO # 0.1 10^3/uL (0.0-0.2); BASO % 0.6 % (0.0-1.0); EOS # 0.2 10^3/uL (0.0-0.5); EOS % 1.8 % (0.0-3.0); HEMOGLOBIN 13.6 g/dl (13.5-17.5); LYMPH # 1.6 10^3/uL (1.5-5.0); LYMPH % 18.5 % (24.0-44.0); MEAN CORPUSCULAR HEMOGLOBIN 28.5 pg (27.0-33.0); MEAN CORPUSCULAR VOLUME 83.9 fl (80.0-96.0); MONO # 0.9 10^3/uL (0.0-0.8); MONO % 10.3 % (2.0-8.0); NEUTROPHILS % 68.3 % (36.0-66.0); PLATELET COUNT, AUTOMATED 341 10^3/uL (150-450); RED BLOOD COUNT 4.77 10^6/uL (4.30-6.10); WHITE BLOOD COUNT 8.7 10^3/uL (4.0-10.0)
[2023-01-31 09:38] LABS: ERYTHROCYTE SEDIMENTATION RATE 38 mm/hr (0-20)
[2023-01-31] MEDS ORDERED: MORPHINE 2 MG/ML 1ML VIAL IV ONE ×2 (11:00→14:20)
[2023-01-31] MEDS ORDERED: PROHANCE 279.3MG/ML 15ML VIAL As Ordered ONE (12:34)
[2023-01-31] MEDS ORDERED: PROHANCE 279.3MG/ML 5ML VIAL As Ordered ONE (12:34)
[2023-01-31] MEDS ORDERED: NS 1,000 ML IV ONE (15:00)
[2023-01-31] MEDS ORDERED: VANCOMYCIN HCL 1,750 MG in NS 250 ML IV ONE (15:30)
[2023-01-31] MEDS ORDERED: cefTRIAXone SOD 2 GM in D5W MINI-BAG PLUS 50 ML IV ONE (15:30)
[2023-01-31] MEDS ORDERED: VANCOMYCIN HCL 750 MG, VIAL MATE ADAPTER 1 EACH in D5W 250 ML IV ONE (16:00)
[2023-01-31] MEDS ORDERED: VANCOMYCIN HCL 1,000 MG, VIAL MATE ADAPTER 1 EACH in D5W 250 ML IV ONE (16:00)
[2023-01-31] MEDS ORDERED: D5W IV ONE (16:30)
[2023-01-31] MEDS ORDERED: VANCOMYCIN HCL IV ONE (16:30)
[2023-01-31 20:36] VITALS: BP 174/82; TEMP 98; O2SAT 99
[2023-02-02 08:18] LABS: FREE T4 1.44 NG/DL (0.93-1.70); THYROID STIMULATING HORMONE 1.07 UIU/ML (0.47-5.01)
[2023-02-02 08:58] LABS: ALKALINE PHOSPHATASE 76 U/L (40-129); ALT/SGPT 21 U/L (1-41); AST/SGOT 42 U/L (5-40); BILIRUBIN,TOTAL 1.1 MG/DL (0.2-1.3); BLOOD UREA NITROGEN 20 MG/DL (7-21); CALCIUM LEVEL 9.8 MG/DL (8.4-10.2); CARBON DIOXIDE LEVEL 25 MEQ/L (22-30); CHLORIDE LEVEL 95 MEQ/L (98-107); CREATININE FOR GFR 0.8 MG/DL (0.7-1.5); GLOMERULAR FILTRATION RATE > 60.0 (>56); GLUCOSE, FASTING 109 MG/DL (70-99); POTASSIUM SERUM 4.3 MEQ/L (3.6-5.0); SODIUM LEVEL 134 MEQ/L (134-153)
[2023-02-02 08:59] LABS: ALBUMIN 4.7 G/DL (3.9-5.0); BILIRUBIN,DIRECT 0.3 MG/DL (0.1-0.4); C REACTIVE PROTEIN QUANTITATIV 1.04 MG/L (1.00-3.00); LIPASE 26 U/L; TOTAL PROTEIN 7.2 G/DL (6.3-8.2)
== END 2023-01-31 20:34 | disposition short-term general hospital (02) ==
LOC: M ED 08:34
DX: G06.1 Intraspinal abscess and granuloma (principal); I10 Essential (primary) hypertension; F17.200 Nicotine dependence, unspecified, uncomplicated; M54.50 Low back pain, unspecified; Z79.02 Long term (current) use of antithrombotics/antiplatelets; Z79.811 Long term (current) use of aromatase inhibitors; Z79.891 Long term (current) use of opiate analgesic; Z79.899 Other long term (current) drug therapy
CPT/HCPCS: 70450; 70551; 71046; 72125; 72156; 72157; 72170; 73502; 80047; 80048; 80076; 81001; 82525; 82607; 83605; 83690; 84145; 84425; 84439; 84443; 84484; 85025; 85652; 86140; 87040; 87486; 87581; 87633; 87798; 93005; 93041; 96365; 96366; 96375; 96376; 99285; A9576; J0696; J2405; J3370

== ENCOUNTER → 2023-02-22 | Outpatient (REF) | payer MEDICARE ==
[~2023-02-22] MED LIST changes: +CYAN-1; +GABA800T4
[2023-02-22 17:15] LABS: BASO % 0.4 % (0.0-1.0); EOS # 0.1 10^3/uL (0.0-0.5); EOS % 1.2 % (0.0-3.0); HEMATOCRIT 43.5 % (42.0-52.0); HEMOGLOBIN 13.6 g/dl (13.5-17.5); LYMPH # 1.2 10^3/uL (1.5-5.0); LYMPH % 12.6 % (24.0-44.0); MEAN CORPUSCULAR HEMOGLOBIN 28.5 pg (27.0-33.0); MEAN CORPUSCULAR HGB CONC 31.3 g/dl (32.0-36.5); MEAN CORPUSCULAR VOLUME 91.2 fl (80.0-96.0); MONO # 0.9 10^3/uL (0.0-0.8); MONO % 9.3 % (2.0-8.0); NEUTROPHILS # 7.1 10^3/uL (1.5-8.5); NEUTROPHILS % 76.3 % (36.0-66.0); PLATELET COUNT, AUTOMATED 298 10^3/uL (150-450); RED BLOOD COUNT 4.77 10^6/uL (4.30-6.10); WHITE BLOOD COUNT 9.3 10^3/uL (4.0-10.0)
[2023-02-22 17:20] LABS: ALBUMIN 3.7 G/DL (3.2-5.2); ALKALINE PHOSPHATASE 59 U/L (46-116); ALT/SGPT 23 U/L (7.0-40); AST/SGOT 19 U/L (<34); BILIRUBIN,TOTAL 0.6 MG/DL (0.3-1.2); BLOOD UREA NITROGEN 16 MG/DL (9-23); CARBON DIOXIDE LEVEL 30 MMOL/L (20-31); CHLORIDE LEVEL 105 MMOL/L (98-107); CREATININE FOR GFR 0.88 MG/DL (0.70-1.30); GLOMERULAR FILTRATION RATE > 60.0 (>49); GLUCOSE, FASTING 93 MG/DL (74-106); POTASSIUM SERUM 4.7 MMOL/L (3.5-5.1); SODIUM LEVEL 142 MMOL/L (136-145); TOTAL PROTEIN 6.6 G/DL (5.7-8.2)
[2023-02-22 18:08] LABS: ERYTHROCYTE SEDIMENTATION RATE 31 mm/hr (0-20)
[2023-02-23 08:57] LABS: ANTI-STREPTOLYSIN O QUANT 213.1 IU/ML (<195)
== END ==
LOC: M SFHCCLAY 11:41
PROVIDERS: ATTEND Nurse Practitioner Family
DX: E27.8 Other specified disorders of adrenal gland (principal); K76.89 Other specified diseases of liver; R50.9 Fever, unspecified; S06.4XAA Epidural hemorrhage with loss of consciousness status unknown, initial encounter; X58.XXXA Exposure to other specified factors, initial encounter; Y92.9 Unspecified place or not applicable; Y93.9 Activity, unspecified; Y99.9 Unspecified external cause status

== ENCOUNTER → 2023-02-23 | Outpatient (CLI) | payer MEDICARE ==
[2023-02-23 11:47] LABS: APPEARANCE, URINE HAZY (CLEAR); BACTERIA, URINE AUTO NEGATIVE (NEGATIVE); BILIRUBIN, URINE AUTO NEGATIVE (NEGATIVE); BLOOD, URINE BLOOD NEGATIVE (NEGATIVE); COLOR, URINE AMBER (YELLOW); GLUCOSE, URINE (UA) AUTO NEGATIVE (NEGATIVE); KETONE, URINE AUTO TRACE mg/dL (NEGATIVE); LEUKOCYTE ESTERASE, URINE AUTO NEGATIVE (NEGATIVE); MUCUS, URINE LARGE (NEGATIVE); NITRITE, URINE AUTO NEGATIVE (NEGATIVE); PROTEIN, URINE AUTO 1+ mg/dL (NEGATIVE); RBC, URINE AUTO 2 /HPF (0-3); SPECIFIC GRAVITY URINE AUTO 1.026 (1.002-1.035); SQUAMOUS EPITHELIAL CELL UR AU 0 /HPF (0-6); UROBILINOGEN, URINE AUTO 0.2 mg/dL (0.0-2.0); WBC, URINE AUTO 2 /HPF (0-3)
== END ==
LOC: M LAB 10:31
PROVIDERS: ATTEND Nurse Practitioner Family
DX: R50.9 Fever, unspecified (principal)

== ENCOUNTER → 2023-03-01 | Outpatient (REF) | payer MEDICARE | LOC: M LAB REF 18:40 | PROVIDERS: ATTEND Internal Medicine Endocrinology, Diabetes & Metabolism | DX: E04.2 Nontoxic multinodular goiter (principal) ==

== ENCOUNTER → 2023-03-03 | Outpatient (CLI) | payer MEDICARE | LOC: M RAD 08:50 | PROVIDERS: ATTEND Nurse Practitioner Family | DX: K76.89 Other specified diseases of liver (principal) ==

== ENCOUNTER → 2023-03-16 | Outpatient (REF) | payer MEDICARE ==
[2023-03-16 18:59] LABS: APPEARANCE, URINE CLEAR (CLEAR); BACTERIA, URINE AUTO NEGATIVE (NEGATIVE); BILIRUBIN, URINE AUTO NEGATIVE (NEGATIVE); BLOOD, URINE BLOOD NEGATIVE (NEGATIVE); COLOR, URINE YELLOW (YELLOW); GLUCOSE, URINE (UA) AUTO NEGATIVE (NEGATIVE); KETONE, URINE AUTO NEGATIVE (NEGATIVE); LEUKOCYTE ESTERASE, URINE AUTO TRACE (NEGATIVE); MUCUS, URINE SMALL (NEGATIVE); NITRITE, URINE AUTO NEGATIVE (NEGATIVE); PROTEIN, URINE AUTO NEGATIVE (NEGATIVE); RBC, URINE AUTO 1 /HPF (0-3); SPECIFIC GRAVITY URINE AUTO 1.024 (1.002-1.035); SQUAMOUS EPITHELIAL CELL UR AU 0 /HPF (0-6); UROBILINOGEN, URINE AUTO 0.2 mg/dL (0.0-2.0); WBC, URINE AUTO 1 /HPF (0-3)
== END ==
LOC: M SMT 17:13
PROVIDERS: ATTEND Physician Assistant
DX: R31.9 Hematuria, unspecified (principal)

== ENCOUNTER → 2023-03-16 | Outpatient (REF) | payer MEDICARE | LOC: M LABWUC 19:34 → M LAB REF 19:34 | PROVIDERS: ATTEND Physician Assistant | DX: Z12.5 Encounter for screening for malignant neoplasm of prostate (principal) | CPT/HCPCS: 36415; G0103 ==

== ENCOUNTER → 2023-03-19 | Outpatient (CLI) | payer MEDICARE | LOC: M PLARAD 09:55 | PROVIDERS: ATTEND Nurse Practitioner Family | DX: D35.01 Benign neoplasm of right adrenal gland (principal); E27.8 Other specified disorders of adrenal gland ==

== ENCOUNTER → 2023-07-05 | Outpatient (REF) | payer MEDICARE ==
[2023-07-05 19:15] LABS: HEMATOCRIT 45.8 % (42.0-52.0); HEMOGLOBIN 14.5 g/dl (13.5-17.5); MEAN CORPUSCULAR HEMOGLOBIN 27.7 pg (27.0-33.0); MEAN CORPUSCULAR HGB CONC 31.7 g/dl (32.0-36.5); MEAN CORPUSCULAR VOLUME 87.4 fl (80.0-96.0); PLATELET COUNT, AUTOMATED 258 10^3/uL (150-450); RED BLOOD COUNT 5.24 10^6/uL (4.30-6.10); WHITE BLOOD COUNT 5.3 10^3/uL (4.0-10.0)
[2023-07-05 19:21] LABS: HEMOGLOBIN A1c 5.6 % (4.0-6.0)
[2023-07-05 19:36] LABS: ALBUMIN 4.1 G/DL (3.2-5.2); ALKALINE PHOSPHATASE 63 U/L (46-116); ALT/SGPT 25 U/L (7.0-40); AST/SGOT 23 U/L (<34); BILIRUBIN,TOTAL 0.9 MG/DL (0.3-1.2); BLOOD UREA NITROGEN 19 MG/DL (9-23); CALCIUM LEVEL 9.1 MG/DL (8.3-10.6); CARBON DIOXIDE LEVEL 31 MMOL/L (20-31); CHLORIDE LEVEL 104 MMOL/L (98-107); CHOLESTEROL LEVEL 124 MG/DL (<200); CHOLESTEROL RISK RATIO 2.62 (<5); CREATININE FOR GFR 1.01 MG/DL (0.70-1.30); FREE T4 0.97 NG/DL (0.89-1.76); GLOMERULAR FILTRATION RATE > 60.0 (>49); GLUCOSE, FASTING 97 MG/DL (74-106); HDL CHOLESTEROL 47.2 MG/DL (>40); LDL CHOLESTEROL 57.2 MG/DL (<100); MAGNESIUM LEVEL 2.2 MG/DL (1.8-2.4); NON-HDL-C 76.8 MG/DL; SODIUM LEVEL 139 MMOL/L (136-145); TRIGLYCERIDES LEVEL 98 MG/DL (<150)
[2023-07-05 19:38] LABS: THYROID STIMULATING HORMONE 1.108 uIU/ML (0.55-4.78)
== END ==
LOC: M SFHCCLAY 10:03
PROVIDERS: ATTEND Nurse Practitioner Family
DX: I10 Essential (primary) hypertension (principal); N32.89 Other specified disorders of bladder; E78.5 Hyperlipidemia, unspecified; Z13.1 Encounter for screening for diabetes mellitus; Z79.899 Other long term (current) drug therapy

== ENCOUNTER → 2023-07-22 | Outpatient (CLI) | payer MEDICARE ==
[~2023-07-22] MED LIST changes: +PROHANCE 279.3MG/ML 15ML VIAL As Ordered ONE; +PROHANCE 279.3MG/ML 5ML VIAL As Ordered ONE
== END ==
LOC: M RAD 07:47
PROVIDERS: ATTEND Physician Assistant Medical
DX: G06.1 Intraspinal abscess and granuloma (principal); G95.9 Disease of spinal cord, unspecified; M40.204 Unspecified kyphosis, thoracic region
CPT/HCPCS: 72156; 72157; A9576

== ENCOUNTER → 2023-07-26 | Outpatient (CLI) | payer MEDICARE | LOC: M RAD 08:35 | PROVIDERS: ATTEND Physician Assistant Medical | DX: G06.1 Intraspinal abscess and granuloma (principal); M47.816 Spondylosis without myelopathy or radiculopathy, lumbar region; M48.061 Spinal stenosis, lumbar region without neurogenic claudication | CPT/HCPCS: 72158; A9576 ==

== ENCOUNTER → 2023-08-09 | Outpatient (REF) | payer MEDICARE ==
[~2023-08-09] MED LIST changes: -PROHANCE 279.3MG/ML 15ML VIAL As Ordered ONE; -PROHANCE 279.3MG/ML 5ML VIAL As Ordered ONE
[2023-08-09 14:48] LABS: BLOOD UREA NITROGEN 15 MG/DL (9-23); CREATININE FOR GFR 0.99 MG/DL (0.70-1.30); GLOMERULAR FILTRATION RATE > 60.0 (>49)
== END ==
LOC: M LABDRAWC 12:48
PROVIDERS: ATTEND Physical Medicine & Rehabilitation
DX: M54.2 Cervicalgia (principal)

== ENCOUNTER → 2023-09-03 | Outpatient (CLI) | payer MEDICARE | LOC: M RAD 14:30 | PROVIDERS: ATTEND Physician Assistant | DX: N32.89 Other specified disorders of bladder (principal) ==

== ENCOUNTER → 2023-09-08 | Outpatient (REF) | payer MEDICARE ==
[2023-09-08 13:40] LABS: APPEARANCE, URINE CLEAR (CLEAR); BACTERIA, URINE AUTO NEGATIVE (NEGATIVE); BILIRUBIN, URINE AUTO NEGATIVE (NEGATIVE); BLOOD, URINE BLOOD NEGATIVE (NEGATIVE); COLOR, URINE YELLOW (YELLOW); GLUCOSE, URINE (UA) AUTO NEGATIVE (NEGATIVE); KETONE, URINE AUTO NEGATIVE (NEGATIVE); LEUKOCYTE ESTERASE, URINE AUTO NEGATIVE (NEGATIVE); MUCUS, URINE SMALL (NEGATIVE); NITRITE, URINE AUTO NEGATIVE (NEGATIVE); PROTEIN, URINE AUTO NEGATIVE (NEGATIVE); RBC, URINE AUTO 1 /HPF (0-3); SPECIFIC GRAVITY URINE AUTO 1.012 (1.002-1.035); SQUAMOUS EPITHELIAL CELL UR AU 0 /HPF (0-6); UROBILINOGEN, URINE AUTO 0.2 mg/dL (0.0-2.0); WBC, URINE AUTO 1 /HPF (0-3)
== END ==
LOC: M SMT 12:44
PROVIDERS: ATTEND Physician Assistant
DX: R31.21 Asymptomatic microscopic hematuria (principal)

== ENCOUNTER → 2024-01-04 | Outpatient (REF) | payer MEDICARE ==
[~2024-01-04] MED LIST changes: +GABA-1490; +GABA-1635; -GABA600T4; -GABA800T4
[2024-01-04 13:02] LABS: APPEARANCE, URINE CLEAR (CLEAR); BACTERIA, URINE AUTO NEGATIVE (NEGATIVE); BILIRUBIN, URINE AUTO NEGATIVE (NEGATIVE); BLOOD, URINE BLOOD NEGATIVE (NEGATIVE); COLOR, URINE STRAW (YELLOW); GLUCOSE, URINE (UA) AUTO NEGATIVE (NEGATIVE); KETONE, URINE AUTO NEGATIVE (NEGATIVE); LEUKOCYTE ESTERASE, URINE AUTO NEGATIVE (NEGATIVE); NITRITE, URINE AUTO NEGATIVE (NEGATIVE); PROTEIN, URINE AUTO NEGATIVE (NEGATIVE); RBC, URINE AUTO 0 /HPF (0-3); SPECIFIC GRAVITY URINE AUTO 1.005 (1.002-1.035); SQUAMOUS EPITHELIAL CELL UR AU 0 /HPF (0-6); UROBILINOGEN, URINE AUTO 0.2 mg/dL (0.0-2.0); WBC, URINE AUTO 0 /HPF (0-3)
== END ==
LOC: M SMT 12:45
PROVIDERS: ATTEND Physician Assistant
DX: R31.21 Asymptomatic microscopic hematuria (principal)

== ENCOUNTER → 2024-07-05 | Outpatient (REF) | payer MEDICARE ==
[2024-07-05 13:30] LABS: BASO % 0.9 % (0.0-1.0); EOS # 0.3 10^3/uL (0.0-0.5); EOS % 6.1 % (0.0-3.0); HEMATOCRIT 43.6 % (42.0-52.0); HEMOGLOBIN 14.1 g/dl (13.5-17.5); LYMPH # 1.5 10^3/uL (1.5-5.0); MEAN CORPUSCULAR HGB CONC 32.3 g/dl (32.0-36.5); MEAN CORPUSCULAR VOLUME 86.7 fl (80.0-96.0); MONO # 0.5 10^3/uL (0.0-0.8); MONO % 9.7 % (2.0-8.0); NEUTROPHILS # 2.4 10^3/uL (1.5-8.5); NEUTROPHILS % 50.9 % (36.0-66.0); PLATELET COUNT, AUTOMATED 257 10^3/uL (150-450); RED BLOOD COUNT 5.03 10^6/uL (4.30-6.10); WHITE BLOOD COUNT 4.6 10^3/uL (4.0-10.0)
[2024-07-05 13:34] LABS: HEMOGLOBIN A1c 5.2 % (4.0-6.0)
[2024-07-05 13:59] LABS: ALBUMIN 3.9 G/DL (3.2-5.2); ALKALINE PHOSPHATASE 60 U/L (40-129); ALT/SGPT 25 U/L (7.0-40); AST/SGOT 22 U/L (<34); BILIRUBIN,TOTAL 0.8 MG/DL (0.3-1.2); BLOOD UREA NITROGEN 21 MG/DL (9-23); CALCIUM LEVEL 9.1 MG/DL (8.3-10.6); CARBON DIOXIDE LEVEL 30 MMOL/L (20-31); CHLORIDE LEVEL 104 MMOL/L (98-107); CHOLESTEROL LEVEL 118 MG/DL (<200); CHOLESTEROL RISK RATIO 2.37 (<5); CREATININE FOR GFR 0.98 MG/DL (0.70-1.30); GLOMERULAR FILTRATION RATE > 60.0 (>49); GLUCOSE, FASTING 94 MG/DL (74-106); HDL CHOLESTEROL 49.6 MG/DL (>40); NON-HDL-C 68.4 MG/DL; POTASSIUM SERUM 4.7 MMOL/L (3.5-5.1); PSA SCREENING 0.34 NG/ML (< 4.00); SODIUM LEVEL 142 MMOL/L (136-145); TOTAL PROTEIN 6.9 G/DL (5.7-8.2); TRIGLYCERIDES LEVEL 72 MG/DL (<150)
[2024-07-05 14:00] LABS: FREE T4 1.04 NG/DL (0.89-1.76); THYROID STIMULATING HORMONE 1.213 uIU/ML (0.55-4.78)
== END ==
LOC: M SFHCCLAY 08:49
PROVIDERS: ATTEND Nurse Practitioner Family
DX: Z12.5 Encounter for screening for malignant neoplasm of prostate (principal); I10 Essential (primary) hypertension; Z87.891 Personal history of nicotine dependence; N32.89 Other specified disorders of bladder; Z13.1 Encounter for screening for diabetes mellitus; E78.5 Hyperlipidemia, unspecified
CPT/HCPCS: 80053; 80061; 83036; 84439; 84443; 85025; G0103

== ENCOUNTER → 2025-01-04 | Outpatient (CLI) | payer MEDICARE ==
[~2025-01-04] MED LIST changes: -FLOM0.4C39 PO; +TAMS-18 PO
== END ==
LOC: M CLY 08:47
PROVIDERS: ATTEND Nurse Practitioner Family
DX: M25.561 Pain in right knee (principal); M25.562 Pain in left knee

== ENCOUNTER → 2025-01-04 | Outpatient (REF) | payer MEDICARE ==
[2025-01-04 13:42] LABS: BASO # 0.0 10^3/uL (0.0-0.2); BASO % 0.9 % (0.0-1.0); EOS # 0.2 10^3/uL (0.0-0.5); EOS % 3.9 % (0.0-3.0); LYMPH # 1.4 10^3/uL (1.5-5.0); LYMPH % 31.0 % (24.0-44.0); MONO # 0.5 10^3/uL (0.0-0.8); MONO % 10.3 % (2.0-8.0); NEUTROPHILS # 2.5 10^3/uL (1.5-8.5); NEUTROPHILS % 53.7 % (36.0-66.0); PLATELET COUNT, AUTOMATED 248 10^3/uL (150-450)
[2025-01-04 13:51] LABS: ERYTHROCYTE SEDIMENTATION RATE 9 mm/hr (0-20)
[2025-01-04 14:07] LABS: C REACTIVE PROTEIN QUANTITATIV < 0.50 MG/DL (<1.0); RHEUMATOID FACTOR QUANT < 3.5 IU/ML (<14)
[2025-01-08 22:08] LABS: LYME TOTAL ANTIBODY CIA 1.46 Index (<=0.90)
[2025-01-09 06:58] LABS: BORRELIA SPECIES DNA NOT DETECTED (NOT DETECT)
[2025-01-09 23:16] LABS: LYME AB IGG BY CIA 2.54 Index (<=0.90); LYME AB IGM BY CIA <= 0.90 Index (<=0.90)
== END ==
LOC: M SFHCCLAY 08:12
PROVIDERS: ATTEND Nurse Practitioner Family
DX: M25.50 Pain in unspecified joint (principal)

== ENCOUNTER → 2025-03-13 | Outpatient (CLI) | payer MEDICARE | LOC: M PLAIMG 09:14 | PROVIDERS: ATTEND Nurse Practitioner Family | DX: I35.0 Nonrheumatic aortic (valve) stenosis (principal) ==